=== PATIENT | male | born 1985 | race Caucasian/White ===

== ENCOUNTER 2021-09-07 01:40 | Emergency (ER) | payer MEDICARE, MEDICAID ==
[~2021-09-07] VITALS: Ht 167.6 cm; Wt 68.0 kg
[2021-09-07 01:45] VITALS: BP 130/86
--- NOTE | 2021-09-07 02:05 | NUR ---
PT TAKEN TO CHAIR C
--- NOTE | 2021-09-07 02:34 | NUR ---
PT C/O HEADACHE X 1 DAY. PT DENIES NAUSEA AND VOMITTING. PT DENIES MEDICAL HX, NO ALLERGIES, AND NO MEDS.
[2021-09-07] MEDS: IBUPROFEN 400 MG TAB PO ONE (02:38)
[2021-09-07] MEDS: ACETAMINOPHEN EXTRA STRENGTH 500 MG TAB PO ONE (02:40)
[2021-09-07 02:42] VITALS: BP 130/86
--- NOTE | 2021-09-07 02:42 | NUR ---
Patient discharged with v/s stable. Written and verbal after care instructions given and explained. Patient verbalized understanding. Ambulatory with steady gait. All questions addressed prior to discharge. Advised to follow up with PMD.
--- NOTE | 2021-09-07 02:44 | NUR ---
The patient's care was reviewed and supervised by Anjelica Cochran RN.
== END 2021-09-07 02:42 | disposition home or self-care (01) ==
LOC: MED 01:40
DX: R51.9 Headache, unspecified (principal)
CPT/HCPCS: 99283

== ENCOUNTER 2022-02-20 01:35 | Emergency (ER) | payer MEDICARE, MEDICAID ==
[~2022-02-20] VITALS: Ht 165.1 cm; Wt 79.0 kg
[2022-02-20 01:48] VITALS: BP 126/96
--- NOTE | 2022-02-20 01:53 | NUR ---
PT PROVIDED Tuyet LINDICH, JUICE, CRACKERS, APPLE SAUCE.
[2022-02-20] MEDS ORDERED: IBUP-2213 PO (04:12)
[2022-02-20] MEDS ORDERED: IBUPROFEN 800 MG TAB PO ONE (04:15)
--- NOTE | 2022-02-20 04:21 | NUR ---
pt reports he "feels good" feeling better after eating. headache 02/28.
--- NOTE | 2022-02-20 04:27 | NUR ---
pt refused homeless resource packet.
[2022-02-20 04:37] VITALS: BP 126/96
== END 2022-02-20 04:37 | disposition home or self-care (01) ==
LOC: MED 01:35
DX: R51.9 Headache, unspecified (principal)
CPT/HCPCS: 99282

== ENCOUNTER 2023-02-18 23:46 | Emergency (ER) | payer MEDICAID, MEDICARE ==
[~2023-02-18] VITALS: Ht 165.1 cm; Wt 78.5 kg
[~2023-02-18 23:46] MED LIST: IBUP-2213 PO
[2023-02-19 00:39] VITALS: BP 120/64
--- NOTE | 2023-02-19 00:45 | NUR ---
Patient refused COVID-19 and flu swabs, Dr. Pugh notified.
--- NOTE | 2023-02-19 02:21 | NUR ---
Richard garcia in ED - 02/19/23 at 0311 by KATIE PATIENT LEFT WITHOUT BEING SEEN BY DR. Pugh. NO FURTHER CARE PROVIDED FOR PATIENT.
--- NOTE | 2023-02-19 02:48 | NUR ---
Patient walked back in lobby.
--- NOTE | 2023-02-19 03:02 | NUR ---
Dr. Pugh examining patient.
[2023-02-19 03:46] VITALS: BP 114/70
== END 2023-02-19 03:46 | disposition home or self-care (01) ==
LOC: MED 23:46
DX: R50.9 Fever, unspecified (principal); Z79.899 Other long term (current) drug therapy
CPT/HCPCS: 99281

== ENCOUNTER 2024-01-16 23:35 | Emergency (ER) | payer MEDICAID, OTHER ==
[~2024-01-16] VITALS: Ht 167.6 cm; Wt 77.1 kg
[~2024-01-16 23:35] MED LIST changes: +CYCL-711 PO
[2024-01-16 23:55] VITALS: BP 161/98; PULSE 106; RESP 18; TEMP 97.8; O2SAT 100
[2024-01-17] MEDS: IBUPROFEN 800 MG TAB PO ONE (00:49)
[2024-01-17 01:15] VITALS: BP 122/60; PULSE 88; RESP 18; TEMP 98.3; O2SAT 99
== END 2024-01-17 01:17 | disposition home or self-care (01) ==
LOC: MED 23:35
DX: M54.50 Low back pain, unspecified (principal); Z79.899 Other long term (current) drug therapy
CPT/HCPCS: 99282

== ENCOUNTER 2024-03-22 23:36 | Emergency (ER) | payer SELFPAY ==
[~2024-03-22] VITALS: Ht 162.6 cm; Wt 65.8 kg
[2024-03-23 02:01] VITALS: BP 139/86; PULSE 92; RESP 18; TEMP 96.9; O2SAT 97
[2024-03-23] MEDS ORDERED: ACETAMINOPHEN EXTRA STRENGTH 500 MG TAB PO ONE (04:20)
[2024-03-23] MEDS ORDERED: NACL 0.9% 1,000 ML IV ONE (04:20)
[2024-03-23] MEDS ORDERED: METOCLOPRAMIDE 10 MG/2 ML INJ VIAL IVP ONE (04:20)
[2024-03-23] MEDS: IBUPROFEN 600 MG TAB PO ONE (05:51)
== END 2024-03-23 05:52 | disposition home or self-care (01) ==
LOC: MED 23:55
DX: R51.9 Headache, unspecified (principal); Z79.899 Other long term (current) drug therapy
CPT/HCPCS: 99282

== ENCOUNTER 2024-05-21 21:46 | Emergency (ER) | payer SELFPAY ==
[~2024-05-21] VITALS: Ht 162.6 cm; Wt 71.2 kg
[2024-05-21 22:16] VITALS: BP 116/74; PULSE 92; RESP 18; TEMP 98.6; O2SAT 97
[2024-05-21 22:28] VITALS: TEMP 98.6
[2024-05-21 22:32] VITALS: O2SAT 96
[2024-05-21] MEDS: IBUPROFEN 600 MG TAB PO ONE (22:57)
[2024-05-21 23:10] LABS: AMPHETAMINE, URINE NEGATIVE ng/ml (NEG <=1000); BARBITURATE, URINE NEGATIVE ng/ml (NEG <=200); BENZODIAZEPINE, URINE NEGATIVE ng/mL (NEG <=200); CANNABINOID, URINE NEGATIVE ng/mL (NEG <=50); COCAINE, URINE NEGATIVE ng/mL (NEG <=300); OPIATE, URINE NEGATIVE ng/mL (NEG <=2000); PHENCYCLIDINE SCREEN,URINE NEGATIVE ng/mL (NEG <=25)
[2024-05-22] MEDS ORDERED: NAPR-337 PO (00:24)
[2024-05-22 01:36] VITALS: BP 106/61; PULSE 67; RESP 14; O2SAT 98
== END 2024-05-22 01:36 | disposition home or self-care (01) ==
LOC: MED 21:46
DX: G44.209 Tension-type headache, unspecified, not intractable (principal); Z79.899 Other long term (current) drug therapy
CPT/HCPCS: 80305; 99283